=== PATIENT | male | born 1975 | race Caucasian/White ===

== ENCOUNTER 2017-01-08 05:12 | Emergency (ER) | payer MEDICAID, SELFPAY ==
[~2017-01-08] VITALS: Ht 182.9 cm; Wt 75.0 kg
[~2017-01-08 05:12] MED LIST: ASPI81CH PO; BACIOI TOP; BACITAB PO; BACITRACIN TOP; BACT800T5 PO; CELE20TA PO; CLEO300C2 PO; CLIN150C14 PO; CLIN300C2 PO; FOLI1TAB4 PO; IBUP200C10 PO; KLON0.5T PO; LYRI150C; LYRI200C PO; MORP15TA4; MS C30TA2; NO HOME MEDS; No current meds; OXYC10TA12 PO; OXYC20TA15; PERC5TAB8; ROXI1TAB2 PO; SERT50TA PO; TRAZ50TA11 PO; VIST50CA PO; VITA100T60 PO; ZOLO50TA PO; [UNRECOGNIZED DRUG - CODE] PO
[2017-01-08] MEDS ORDERED: LORazepam 2 MG/ML VIAL (J2060) IV STA ×2 (05:26→05:39)
[2017-01-08 05:42] LABS: BASO # 0.1 K/mm3 (0.0-0.2); BASO % 0.7 % (0.0-1.0); EOS # 0.1 K/mm3 (0.0-0.50); EOS % 1.2 % (0.0-3.0); LARGE UNSTAINED CELL # 0.5 K/mm3 (0.0-0.4); LARGE UNSTAINED CELL % 5.1 % (0.0-4.0); LYMPH # 3.4 K/mm3 (1.5-4.5); LYMPH % 28.5 % (24.0-44.0); MEAN CORPUSCULAR HEMOGLOBIN 32.5 pg (27.0-33.0); MEAN CORPUSCULAR HGB CONC 34.2 g/dl (32.0-36.5); MEAN CORPUSCULAR VOLUME 95.1 fl (80.0-96.0); MONO # 0.8 K/mm3 (0.0-0.8); MONO % 7.5 % (0.0-5.0); NEUTROPHILS # 5.8 K/mm3 (1.8-7.7); PLATELET COUNT, AUTOMATED 400 k/mm3 (150-450); WHITE BLOOD COUNT 10.1 K/mm3 (4.0-10.0)
[2017-01-08 06:11] LABS: ALBUMIN 4.4 GM/DL (3.2-5.2); ALBUMIN/GLOBULIN RATIO 1.29 (1.00-1.93); ALKALINE PHOSPHATASE 65 U/L (45-117); ALT/SGPT 17 U/L (12-78); ANION GAP 12 MEQ/L (8-16); AST/SGOT 9 U/L (15-37); BILIRUBIN,DIRECT 0.2 MG/DL (0.0-0.2); BILIRUBIN,TOTAL 1.4 MG/DL (0.2-1.0); BLOOD UREA NITROGEN 11 MG/DL (7-18); CALCIUM LEVEL 8.9 MG/DL (8.5-10.1); CARBON DIOXIDE LEVEL 26 MEQ/L (21-32); CHLORIDE LEVEL 100 MEQ/L (98-107); CREATININE FOR GFR 1.42 MG/DL (0.70-1.30); FREE T4 1.16 NG/DL (0.76-1.46); GLOMERULAR FILTRATION RATE 57.9 (>60); GLUCOSE, FASTING 121 MG/DL (70-105); POTASSIUM SERUM 3.2 MEQ/L (3.5-5.1); SODIUM LEVEL 138 MEQ/L (136-145); TOTAL PROTEIN 7.8 GM/DL (6.4-8.2)
[2017-01-08] MEDS ORDERED: NS 1,000 ML IV ONE (06:30)
[2017-01-08] MEDS ORDERED: NITROGLYCERIN 2% OINT 1 GM *U/D* PKT TOP ONE (06:45)
[2017-01-08 06:47] VITALS: BP 132/65
--- NOTE | 2017-01-08 07:01 | ED PDOC ---
Post-Departure Follow-Up certified letter sent to patient Pratibha Cummins MD Jan 08, 2017 07:00
[2017-01-08 07:08] LABS: METHADONE URINE NEGATIVE (NEGATIVE)
--- NOTE | 2017-01-08 07:31 | REP ---
Clinical: Chest pain . Comparison: 06/30/2016 . Findings: The mediastinum and cardiac silhouette are stable and within normal limits for portable technique. The lung cisneros are clear without acute consolidation, effusion, or pneumothorax. Skeletal structures are intact. Impression: No acute cardiopulmonary process appreciated. Signed by Harjinder Payne MD 01/08/2017 07:23 A
[2017-01-08 10:50] VITALS: BP 128/61
--- NOTE | 2017-01-09 07:21 | ECGEPIP ---
Stationary ECG Study [facility] - ED Test Date: 2017-01-08 Pat Name: HO SMALL Department: Room: - Gender: M Roving Department Supervisor: FarrellB: 1975 Requested By: IRMA Silva Order Number: [id number] Reading MD: Pratibha Cummins Measurements Intervals [place] Rate: 120 P: 62 [place]: 147 QRS: 87 QRSD: 106 T: 67 QT: 319 QTc: 451 Interpretive Statements SINUS TACHYCARDIA ABNORMAL RHYTHM ECG NSTTW ABNORMALITY VS ARTIFACT BASELINE ARTIFACT LIMITS INTERPRETATION Electronically Signed On 01-09-2017 7:21:38 EDT by Pratibha Cummins
--- NOTE | 2017-01-09 07:26 | ECGEPIP ---
Stationary ECG Study [facility] - ED Test Date: 2017-01-08 Pat Name: HO SMALL Department: Room: - Gender: M Night Order Selector: PEYTON : 1975 Requested By: IRMA Silva Order Number: [id number] Reading MD: Pratibha Cummins Measurements Intervals [place] Rate: 69 P: 72 DE: 144 QRS: 89 QRSD: 109 T: 76 QT: 374 QTc: 402 Interpretive Statements SINUS RHYTHM Electronically Signed On 01-09-2017 7:26:29 EDT by Pratibha Cummins
[2017-05-07] MEDS ORDERED: IBUP-1022 PO (10:18)
[2017-05-07] MEDS ORDERED: CLEO300C2 PO (12:53)
== END 2017-01-08 12:31 | disposition home or self-care (01) ==
LOC: EDBD 05:12 → M ED 05:12
DX: R07.9 Chest pain, unspecified (principal); F15.10 Other stimulant abuse, uncomplicated; I25.9 Chronic ischemic heart disease, unspecified; Z95.5 Presence of coronary angioplasty implant and graft; Z88.5 Allergy status to narcotic agent
CPT/HCPCS: 51701; 71010; 80048; 80076; 80307; 82550; 82553; 83690; 83880; 84439; 84443; 85025; 93005; 93041; 94760; 96374; 99285; G0480; J2060

== ENCOUNTER 2018-05-22 13:44 | Observation (INO) | payer MEDICAID, SELFPAY ==
[2018-05-22] MEDS: NS 1,000 ML IV ×2 (14:11→19:31)
[2018-05-22] MEDS: ONDANSETRON 4MG/2ML VIAL (J2405) IV ×2 (14:11→21:23)
[2018-05-22] MEDS: LORazepam 2 MG/ML VIAL (J2060) IV ×4 (14:11→21:56)
[2018-05-22 14:34] LABS: BASO # 0.1 10^3/uL (0.0-0.2); BASO % 0.4 % (0.0-1.0); EOS # 0.1 10^3/uL (0.0-0.50); EOS % 0.7 % (0.0-3.0); HEMATOCRIT 41.7 % (42.0-52.0); HEMOGLOBIN 14.1 g/dl (13.5-17.5); IMMATURE GRANULOCYTE % 0.5 % (0-3.0); LYMPH # 1.9 10^3/uL (1.5-4.5); MEAN CORPUSCULAR HEMOGLOBIN 31.3 pg (27.0-33.0); MEAN CORPUSCULAR HGB CONC 33.8 g/dl (32.0-36.5); MEAN CORPUSCULAR VOLUME 92.5 fl (80.0-96.0); MONO # 1.1 10^3/uL (0.0-0.8); MONO % 8.1 % (0.0-5.0); NEUTROPHILS # 10.4 10^3/uL (1.8-7.7); NEUTROPHILS % 76.3 % (36.0-66.0); PLATELET COUNT, AUTOMATED 433 10^3/uL (150-450); RED BLOOD COUNT 4.51 10^6/uL (4.30-6.10); RED CELL DISTRIBUTION WIDTH 12.6 % (11.5-14.5); WHITE BLOOD COUNT 13.6 10^3/uL (4.0-10.0)
[2018-05-22 15:13] LABS: ALBUMIN 4.3 GM/DL (3.2-5.2); ALBUMIN/GLOBULIN RATIO 1.39 (1.00-1.93); ALKALINE PHOSPHATASE 63 U/L (45-117); ALT/SGPT 21 U/L (12-78); ANION GAP 11 MEQ/L (8-16); AST/SGOT 21 U/L (7-37); BILIRUBIN,DIRECT 0.2 MG/DL (0.0-0.2); BLOOD UREA NITROGEN 7 MG/DL (7-18); CALCIUM LEVEL 9.3 MG/DL (8.5-10.1); CARBON DIOXIDE LEVEL 25 MEQ/L (21-32); CHLORIDE LEVEL 103 MEQ/L (98-107); CPK CREATINE PHOSPHOKINASE 361 U/L (39-308); CREATININE FOR GFR 1.34 MG/DL (0.70-1.30); ETHYL ALCOHOL (ETHANOL) 0.004 % (0.000-0.010); GLOMERULAR FILTRATION RATE > 60.0 (>60); GLUCOSE, FASTING 85 MG/DL (70-100); SALICYLATE LEVEL 1.7 MG/DL (5.0-30.0); SODIUM LEVEL 139 MEQ/L (136-145); TOTAL PROTEIN 7.4 GM/DL (6.4-8.2)
[2018-05-22 15:14] LABS: ACETAMINOPHEN LEVEL < 2.0 UG/ML (10.0-30.0)
[2018-05-22 16:32] LABS: AMPHETAMINES LEVEL URINE POSITIVE (NEGATIVE); BARBITURATES URINE NEGATIVE (NEGATIVE); BENZODIAZEPINES URINE NEGATIVE (NEGATIVE); CANNABINOIDS URINE NEGATIVE (NEGATIVE); COCAINE METABOLITE URINE NEGATIVE (NEGATIVE); METHADONE URINE NEGATIVE (NEGATIVE); OPIATES URINE NEGATIVE (NEGATIVE); PHENCYCLIDINE URINE NEGATIVE (NEGATIVE)
[2018-05-22 17:59] LABS: CPK CREATINE PHOSPHOKINASE 332 U/L (39-308)
[2018-05-22] MEDS: ACETAMINOPHEN TAB 650MG DOSE (2X325MG) PO (21:22)
[2018-05-23 08:04] LABS: HEMATOCRIT 39.9 % (42.0-52.0); HEMOGLOBIN 13.5 g/dl (13.5-17.5); MEAN CORPUSCULAR HEMOGLOBIN 31.5 pg (27.0-33.0); MEAN CORPUSCULAR HGB CONC 33.8 g/dl (32.0-36.5); RED BLOOD COUNT 4.29 10^6/uL (4.30-6.10); RED CELL DISTRIBUTION WIDTH 12.9 % (11.5-14.5); WHITE BLOOD COUNT 8.1 10^3/uL (4.0-10.0)
[2018-05-23 08:11] LABS: PLATELET COUNT, AUTOMATED 321 10^3/uL (150-450)
[2018-05-23 08:17] LABS: ANION GAP 6 MEQ/L (8-16); BLOOD UREA NITROGEN 7 MG/DL (7-18); CALCIUM LEVEL 8.1 MG/DL (8.5-10.1); CARBON DIOXIDE LEVEL 28 MEQ/L (21-32); CHLORIDE LEVEL 108 MEQ/L (98-107); CREATININE FOR GFR 0.97 MG/DL (0.70-1.30); GLOMERULAR FILTRATION RATE > 60.0 (>60); GLUCOSE, FASTING 96 MG/DL (70-100); POTASSIUM SERUM 3.4 MEQ/L (3.5-5.1); SODIUM LEVEL 142 MEQ/L (136-145)
[2018-05-23] MEDS: PANTOPRAZOLE 40MG INJ (PROTONIX) (C9113) IV ×2 (09:00→22:02)
[2018-05-23] MEDS ORDERED: PANTOPRAZOLE 40MG TAB (PROTONIX) PO (09:00)
[2018-05-23] MEDS ORDERED: POTASSIUM CHLORIDE 10 MEQ SR TABLET PO (10:00)
[2018-05-23] MEDS: ONDANSETRON 4MG/2ML VIAL (J2405) IV ×2 (10:53→17:21)
[2018-05-23] MEDS: SUCRALFATE SUSP 1GM/10ML UD PO ×3 (12:18→22:02)
[2018-05-23] MEDS: GI COCKTAIL 50ML BTL(HYOSCYAMINE/MAALOX/LIDOCAINE VISCOUS)(1:3:1) PO ×2 (12:19→22:02)
[2018-05-23 12:50] LABS: AMYLASE 26 U/L (25-115); LIPASE 71 U/L (73-393)
[2018-05-23] MEDS: ACETAMINOPHEN TAB 650MG DOSE (2X325MG) PO ×2 (13:50→22:12)
[2018-05-24] MEDS: ACETAMINOPHEN TAB 650MG DOSE (2X325MG) PO (04:10)
[2018-05-24] MEDS: SUCRALFATE SUSP 1GM/10ML UD PO ×4 (09:30→21:07)
[2018-05-24] MEDS: PANTOPRAZOLE 40MG INJ (PROTONIX) (C9113) IV (09:30)
[2018-05-24] MEDS: ONDANSETRON 4MG/2ML VIAL (J2405) IV (09:30)
[2018-05-24] MEDS: ONDANSETRON 4 MG ORAL DISINTEGRATING TAB (Q0162 PER 1MG) SL (13:39)
[2018-05-24] MEDS ORDERED: SUCRALFATE SUSP 1GM/10ML UD PO (17:15)
[2018-05-24] MEDS: PANTOPRAZOLE 40MG TAB (PROTONIX) PO (21:07)
[2018-05-25] MEDS: SUCRALFATE SUSP 1GM/10ML UD PO ×3 (09:47→17:14)
[2018-05-25] MEDS: PANTOPRAZOLE 40MG TAB (PROTONIX) PO (10:00)
[2018-05-25] MEDS: ACETAMINOPHEN TAB 650MG DOSE (2X325MG) PO (12:41)
== END 2018-05-25 18:30 ==
LOC: M MSPAV 05-23 15:31 → M ED 13:44 → M ED INP 19:31 → M ICU 21:30
DX: T14.91XA Suicide attempt, initial encounter (principal); T43.622A Poisoning by amphetamines, intentional self-harm, initial encounter; K29.60 Other gastritis without bleeding; F19.20 Other psychoactive substance dependence, uncomplicated; I25.10 Atherosclerotic heart disease of native coronary artery without angina pectoris; Z98.61 Coronary angioplasty status; I25.2 Old myocardial infarction; I10 Essential (primary) hypertension; Z79.899 Other long term (current) drug therapy; Y92.9 Unspecified place or not applicable
CPT/HCPCS: C9113

== ENCOUNTER 2018-05-25 18:30 | Inpatient (IN) | payer MEDICAID, SELFPAY ==
[2018-05-25] MEDS ORDERED: MAALOX 30 ML SUSP *UDC PO (19:15)
[2018-05-25] MEDS ORDERED: MOM 30ML SUSPENSION UDC PO (19:15)
[2018-05-25] MEDS: hydrOXYzine 50 MG TAB PO (21:41)
[2018-05-25] MEDS: MIRTAZAPINE 15 MG TAB PO (21:41)
[2018-05-26] MEDS: NICOTINE 14 MG/24 HR TRANSDERMAL TD (09:00)
[2018-05-26] MEDS: SERTRALINE HCL 50 MG TAB PO (09:50)
[2018-05-26] MEDS: hydrOXYzine 50 MG TAB PO ×2 (09:51→21:10)
[2018-05-26] MEDS: SUCRALFATE SUSP 1GM/10ML UD PO ×3 (11:34→21:10)
[2018-05-26] MEDS: PANTOPRAZOLE 40MG TAB (PROTONIX) PO (11:34)
[2018-05-26] MEDS: IBUPROFEN 400 MG TAB PO (17:07)
[2018-05-26] MEDS: MIRTAZAPINE 15 MG TAB PO (21:10)
[2018-05-27] MEDS: SUCRALFATE SUSP 1GM/10ML UD PO ×4 (07:11→21:12)
[2018-05-27] MEDS: SERTRALINE HCL 50 MG TAB PO (08:14)
[2018-05-27] MEDS: PANTOPRAZOLE 40MG TAB (PROTONIX) PO (08:14)
[2018-05-27] MEDS: NICOTINE 14 MG/24 HR TRANSDERMAL TD (08:15)
[2018-05-27] MEDS: hydrOXYzine 50 MG TAB PO (12:09)
[2018-05-27] MEDS: GABAPENTIN 300 MG CAP PO ×2 (15:44→21:12)
[2018-05-27] MEDS: hydrOXYzine 25 MG TAB PO (15:44)
[2018-05-27] MEDS: MIRTAZAPINE 15 MG TAB PO (21:12)
[2018-05-28] MEDS: SUCRALFATE SUSP 1GM/10ML UD PO ×4 (07:38→21:22)
[2018-05-28] MEDS: GABAPENTIN 300 MG CAP PO ×3 (09:00→21:22)
[2018-05-28] MEDS: PANTOPRAZOLE 40MG TAB (PROTONIX) PO (09:00)
[2018-05-28] MEDS: SERTRALINE HCL 50 MG TAB PO (09:00)
[2018-05-28] MEDS: hydrOXYzine 25 MG TAB PO ×2 (09:00→16:33)
[2018-05-28] MEDS: NICOTINE 14 MG/24 HR TRANSDERMAL TD (09:00)
[2018-05-28] MEDS: MIRTAZAPINE 15 MG TAB PO (21:23)
[2018-05-29] MEDS: SUCRALFATE SUSP 1GM/10ML UD PO ×3 (06:49→17:14)
[2018-05-29] MEDS: GABAPENTIN 300 MG CAP PO ×3 (08:27→21:18)
[2018-05-29] MEDS: SERTRALINE HCL 50 MG TAB PO (08:27)
[2018-05-29] MEDS: PANTOPRAZOLE 40MG TAB (PROTONIX) PO (08:27)
[2018-05-29] MEDS: NICOTINE 14 MG/24 HR TRANSDERMAL TD (08:27)
[2018-05-29] MEDS: hydrOXYzine 25 MG TAB PO ×2 (13:35→21:18)
[2018-05-29] MEDS: PROPRANOLOL 10 MG TAB PO (15:21)
[2018-05-29] MEDS: SUCRALFATE 1 GM TAB PO (21:18)
[2018-05-29] MEDS: MIRTAZAPINE 15 MG TAB PO (21:18)
[2018-05-30] MEDS: SUCRALFATE 1 GM TAB PO ×4 (07:08→21:00)
[2018-05-30] MEDS: NICOTINE 14 MG/24 HR TRANSDERMAL TD (10:05)
[2018-05-30] MEDS: GABAPENTIN 300 MG CAP PO ×4 (10:07→21:00)
[2018-05-30] MEDS: PANTOPRAZOLE 40MG TAB (PROTONIX) PO (10:07)
[2018-05-30] MEDS: SERTRALINE HCL 50 MG TAB PO (10:07)
[2018-05-30] MEDS: hydrOXYzine 25 MG TAB PO ×2 (10:07→15:31)
[2018-05-30] MEDS: IBUPROFEN 400 MG TAB PO (15:31)
[2018-05-30] MEDS: MIRTAZAPINE 15 MG TAB PO (21:00)
[2018-05-31] MEDS: SUCRALFATE 1 GM TAB PO ×4 (06:34→21:45)
[2018-05-31] MEDS: GABAPENTIN 300 MG CAP PO ×4 (08:41→21:45)
[2018-05-31] MEDS: PANTOPRAZOLE 40MG TAB (PROTONIX) PO (08:41)
[2018-05-31] MEDS: NICOTINE 14 MG/24 HR TRANSDERMAL TD (08:41)
[2018-05-31] MEDS: SERTRALINE HCL 50 MG TAB PO (08:41)
[2018-05-31] MEDS: hydrOXYzine 25 MG TAB PO (14:30)
[2018-05-31] MEDS: MIRTAZAPINE 15 MG TAB PO (21:45)
[2018-06-01] MEDS: SUCRALFATE 1 GM TAB PO ×2 (06:38→11:30)
[2018-06-01] MEDS: NICOTINE 14 MG/24 HR TRANSDERMAL TD (09:00)
[2018-06-01] MEDS: SERTRALINE HCL 50 MG TAB PO (09:46)
[2018-06-01] MEDS: GABAPENTIN 300 MG CAP PO (09:46)
[2018-06-01] MEDS: PANTOPRAZOLE 40MG TAB (PROTONIX) PO (09:46)
[2018-06-01] MEDS: hydrOXYzine 25 MG TAB PO (09:47)
[2018-06-01] MEDS ORDERED: hydrOXYzine 50 MG TAB PO (11:15)
== END 2018-06-01 12:30 | disposition home or self-care (01) | DRG 751 ==
LOC: M PSY 18:30
DX: F33.2 Major depressive disorder, recurrent severe without psychotic features (principal); R45.851 Suicidal ideations; F19.94 Other psychoactive substance use, unspecified with psychoactive substance-induced mood disorder; F15.90 Other stimulant use, unspecified, uncomplicated; Z79.899 Other long term (current) drug therapy; Z88.8 Allergy status to other drugs, medicaments and biological substances; I25.10 Atherosclerotic heart disease of native coronary artery without angina pectoris; F41.9 Anxiety disorder, unspecified; F17.200 Nicotine dependence, unspecified, uncomplicated

== ENCOUNTER 2018-06-03 16:38 | Emergency (ER) | payer MEDICAID ==
[2018-06-03] MEDS: LORazepam 2 MG/ML VIAL (J2060) IV ×3 (17:27→18:38)
[2018-06-03 17:36] LABS: BASO # 0.1 10^3/uL (0.0-0.2); BASO % 0.6 % (0.0-1.0); EOS # 0.2 10^3/uL (0.0-0.50); EOS % 1.2 % (0.0-3.0); HEMOGLOBIN 15.1 g/dl (13.5-17.5); IMMATURE GRANULOCYTE % 0.4 % (0-3.0); LYMPH % 12.3 % (24.0-44.0); MEAN CORPUSCULAR HEMOGLOBIN 30.4 pg (27.0-33.0); MEAN CORPUSCULAR HGB CONC 33.6 g/dl (32.0-36.5); MEAN CORPUSCULAR VOLUME 90.5 fl (80.0-96.0); MONO # 1.2 10^3/uL (0.0-0.8); MONO % 7.4 % (0.0-5.0); NEUTROPHILS # 12.7 10^3/uL (1.8-7.7); NEUTROPHILS % 78.1 % (36.0-66.0); PLATELET COUNT, AUTOMATED 403 10^3/uL (150-450); RED BLOOD COUNT 4.97 10^6/uL (4.30-6.10); RED CELL DISTRIBUTION WIDTH 12.8 % (11.5-14.5); WHITE BLOOD COUNT 16.3 10^3/uL (4.0-10.0)
[2018-06-03 18:15] LABS: ACETAMINOPHEN LEVEL < 2.0 UG/ML (10.0-30.0); ALBUMIN 4.3 GM/DL (3.2-5.2); ALBUMIN/GLOBULIN RATIO 1.16 (1.00-1.93); ALKALINE PHOSPHATASE 89 U/L (45-117); ALT/SGPT 248 U/L (12-78); ANION GAP 13 MEQ/L (8-16); AST/SGOT 89 U/L (7-37); BILIRUBIN,DIRECT 0.2 MG/DL (0.0-0.2); BILIRUBIN,TOTAL 1.8 MG/DL (0.2-1.0); BLOOD UREA NITROGEN 18 MG/DL (7-18); CALCIUM LEVEL 9.4 MG/DL (8.5-10.1); CARBON DIOXIDE LEVEL 23 MEQ/L (21-32); CHLORIDE LEVEL 103 MEQ/L (98-107); CPK CREATINE PHOSPHOKINASE 507 U/L (39-308); CREATININE FOR GFR 1.33 MG/DL (0.70-1.30); ETHYL ALCOHOL (ETHANOL) < 0.003 % (0.000-0.010); GLOMERULAR FILTRATION RATE > 60.0 (>60); GLUCOSE, FASTING 89 MG/DL (70-100); POTASSIUM SERUM 4.9 MEQ/L (3.5-5.1); SALICYLATE LEVEL < 1.7 MG/DL (5.0-30.0); SODIUM LEVEL 139 MEQ/L (136-145)
[2018-06-03 19:12] LABS: ABG BASE EXCESS -0.2 (-2.0-2.0); ABG HCO3 23.4 MEQ/L (22.0-26.0); ABG O2 SATURATION 96.7 % (95.0-99.0); ABG PARTIAL PRESSURE CO2 35.1 mmHg (35.0-45.0); ABG PARTIAL PRESSURE O2 85.2 mmHg (75.0-100.0); ABG STANDARD HCO3 24.3 MEQ/L (22.0-26.0); ABG TOTAL CO2 24.4 MEQ/L (22.0-29.0); ABG pH (ARTERIAL) 7.441 UNITS (7.350-7.450); AMPHETAMINES LEVEL URINE POSITIVE (NEGATIVE); BARBITURATES URINE NEGATIVE (NEGATIVE); BENZODIAZEPINES URINE NEGATIVE (NEGATIVE); CANNABINOIDS URINE NEGATIVE (NEGATIVE); COCAINE METABOLITE URINE NEGATIVE (NEGATIVE); METHADONE URINE NEGATIVE (NEGATIVE); OPIATES URINE NEGATIVE (NEGATIVE); PHENCYCLIDINE URINE NEGATIVE (NEGATIVE)
[2018-06-03] MEDS: chlorproMAZINE INJ 50MG/2ML AMP (J3230) IM (19:56)
[2018-06-03] MEDS: diphenhydrAMINE INJ 50MG/ML VIAL (J1200) IM (22:22)
[2018-06-03] MEDS: HALOPERIDOL 5 MG/ML VIAL (J1630) IM (22:22)
== END 2018-06-04 13:31 | disposition home or self-care (01) ==
LOC: M ED 06-04 13:31
DX: F15.10 Other stimulant abuse, uncomplicated (principal); R00.0 Tachycardia, unspecified; Z91.5 Personal history of self-harm; M54.9 Dorsalgia, unspecified; F17.200 Nicotine dependence, unspecified, uncomplicated; Z88.5 Allergy status to narcotic agent; Z95.5 Presence of coronary angioplasty implant and graft; Z79.899 Other long term (current) drug therapy
CPT/HCPCS: J1200

== ENCOUNTER 2018-06-18 21:24 | Emergency (ER) | payer MEDICAID | END 2018-06-18 22:21 | disposition home or self-care (01) | LOC: M ED 21:24 | DX: L73.1 Pseudofolliculitis barbae (principal); I51.9 Heart disease, unspecified; Z72.0 Tobacco use; Z88.5 Allergy status to narcotic agent | CPT/HCPCS: 99282 ==

== ENCOUNTER 2019-11-04 20:27 | Inpatient (IN) | payer MEDICAID ==
[~2019-11-04] VITALS: Ht 180.3 cm; Wt 80.9 kg
[~2019-11-04 20:27] MED LIST changes: -ASPI81CH PO; +ASPI81CH49 PO; +FOLI1TAB11 PO; -FOLI1TAB4 PO; +HYDR1TAB33 PO; +Hyoscyamine/Maalox/Lidoca Visc PO; +IBUP-1022 PO; -IBUP200C10 PO; +IBUP200C25 PO; +MIRT15TA3 PO; +NAPR-837 PO; +NICO14PA TD; +ONDA4TAB6 SL; +PANT40TA3 PO; +PROP10TA55 PO; +SERT-141 PO; -SERT50TA PO; +SUCR1ORA2 PO; +TRAZ-252 PO; -TRAZ50TA11 PO
[2019-11-04] MEDS ORDERED: LORazepam 2 MG TAB PO STA (20:58)
[2019-11-04 21:39] LABS: HEMATOCRIT 45.3 % (42.0-52.0); HEMOGLOBIN 15.4 g/dl (13.5-17.5); MEAN CORPUSCULAR HEMOGLOBIN 30.1 pg (27.0-33.0); MEAN CORPUSCULAR VOLUME 88.5 fl (80.0-96.0); PLATELET COUNT, AUTOMATED 428 10^3/uL (150-450); RED BLOOD COUNT 5.12 10^6/uL (4.30-6.10); WHITE BLOOD COUNT 18.9 10^3/uL (4.0-10.0)
[2019-11-04 22:13] LABS: ACETAMINOPHEN LEVEL < 2.0 UG/ML (10.0-30.0); ALBUMIN 4.3 GM/DL (3.2-5.2); ALT/SGPT 19 U/L (12-78); BILIRUBIN,DIRECT 0.4 MG/DL (0.0-0.2); BILIRUBIN,TOTAL 2.1 MG/DL (0.2-1.0); BLOOD UREA NITROGEN 15 MG/DL (7-18); CARBON DIOXIDE LEVEL 27 MEQ/L (21-32); CHLORIDE LEVEL 104 MEQ/L (98-107); CREATININE FOR GFR 1.42 MG/DL (0.70-1.30); ETHYL ALCOHOL (ETHANOL) < 0.003 % (0.000-0.010); GLOMERULAR FILTRATION RATE 57.1 (>60); GLUCOSE, FASTING 85 MG/DL (70-100); POTASSIUM SERUM 3.9 MEQ/L (3.5-5.1); SALICYLATE LEVEL < 1.7 MG/DL (5.0-30.0); SODIUM LEVEL 139 MEQ/L (136-145); TOTAL PROTEIN 7.4 GM/DL (6.4-8.2)
[2019-11-04] MEDS ORDERED: LORazepam 1 MG TAB PO STA (22:25)
[2019-11-04 22:54] LABS: AMPHETAMINES LEVEL URINE POSITIVE (NEGATIVE); BARBITURATES URINE NEGATIVE (NEGATIVE); BENZODIAZEPINES URINE NEGATIVE (NEGATIVE); CANNABINOIDS URINE NEGATIVE (NEGATIVE); COCAINE METABOLITE URINE NEGATIVE (NEGATIVE); METHADONE URINE NEGATIVE (NEGATIVE); OPIATES URINE NEGATIVE (NEGATIVE); PHENCYCLIDINE URINE NEGATIVE (NEGATIVE)
[2019-11-04] MEDS ORDERED: MAALOX 30 ML SUSP *UDC PO PRN (23:30)
[2019-11-04] MEDS ORDERED: MOM 30ML SUSPENSION UDC PO PRN (23:30)
[2019-11-04] MEDS ORDERED: ACETAMINOPHEN TAB 650MG DOSE (2X325MG) PO PRN (23:30)
[2019-11-05 01:12] VITALS: BP 133/82
[2019-11-05 14:09] LABS: HEMATOCRIT 47.2 % (42.0-52.0); HEMOGLOBIN 15.9 g/dl (13.5-17.5); MEAN CORPUSCULAR HEMOGLOBIN 30.4 pg (27.0-33.0); MEAN CORPUSCULAR HGB CONC 33.7 g/dl (32.0-36.5); MEAN CORPUSCULAR VOLUME 90.2 fl (80.0-96.0); PLATELET COUNT, AUTOMATED 396 10^3/uL (150-450); RED BLOOD COUNT 5.23 10^6/uL (4.30-6.10); WHITE BLOOD COUNT 8.7 10^3/uL (4.0-10.0)
[2019-11-05 14:27] LABS: ERYTHROCYTE SEDIMENTATION RATE 5 mm/hr (0-15)
[2019-11-05 14:34] LABS: ALBUMIN 3.8 GM/DL (3.2-5.2); ALT/SGPT 19 U/L (12-78); BLOOD UREA NITROGEN 21 MG/DL (7-18); C REACTIVE PROTEIN QUANTITATIV 5.24 MG/DL (0.00-0.30); CALCIUM LEVEL 9.2 MG/DL (8.5-10.1); CARBON DIOXIDE LEVEL 27 MEQ/L (21-32); CHLORIDE LEVEL 104 MEQ/L (98-107); CHOLESTEROL LEVEL 194 MG/DL (<200); CHOLESTEROL RISK RATIO 4.511 (<5); CREATININE FOR GFR 1.24 MG/DL (0.70-1.30); GLOMERULAR FILTRATION RATE > 60.0 (>60); GLUCOSE, FASTING 117 MG/DL (70-100); HDL CHOLESTEROL 43 MG/DL (>40); LDL CHOLESTEROL 141 MG/DL (<100); NON-HDL-C 151 MG/DL; POTASSIUM SERUM 3.8 MEQ/L (3.5-5.1); SODIUM LEVEL 139 MEQ/L (136-145); TRIGLYCERIDES LEVEL 52 MG/DL (<150)
[2019-11-05 16:35] VITALS: BP 111/57
[2019-11-05] MEDS: ARIPiprazole 2 MG TAB PO SCH (21:27)
[2019-11-05] MEDS: traZODone 50 MG TAB PO PRN (21:27)
[2019-11-06 06:24] VITALS: BP 132/66
--- NOTE | 2019-11-06 09:10 | HPE ---
DATE OF ADMISSION: 11/04/2019 DATE OF SERVICE: 11/05/2019 CHIEF COMPLAINT: Patient is admitted to inpatient mental health unit. No medical complaints at this time. HISTORY OF PRESENTING ILLNESS: This is a 44-year-old male with history o polysubstance abuse, anxiety, history of intentional drug overdose,suicide attempt and suicide ideation, coronary artery disease (CAD) with historyof stent,and lumbar laminectomy in 2007,admitted to inpatient mental health unit.Currently denies any fever, chills, cough, shortness of breath, nausea, vomiting,diarrhea, dysuria, urgency, frequency, abdominal pain, weight gain, weight loss.Patient denies any chest pain, pressure tightness, shortness of breath,palpitations, lightheadedness, dizziness. Denies any flank pain, bright redblood per rectum, melena, black tarry stools. Patient is requesting for his home medications to be restarted. Otherwise, denies any changes in vision, joint pains, muscle aches, weight loss, unusual rash. PAST MEDICAL HISTORY: 1. CAD, stent. 2. Polysubstance abuse. 3. Suicide attempt. 4. Intentional drug overdose. 5. Suicidal ideation. 6. Anxiety. 7. Depression. PAST SURGICAL HISTORY: 1. Lumbar laminectomy 2007. 2. Appendectomy. 3. Coronary artery stents. SOCIAL HISTORY: Lives in [place]. . Three children. Smokes a half a pack per day. Not ready to quit. Refused tobacco cessation counseling today and refused nicotine patch or nicotine gum. History of methamphetamine, cocaine use. 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 FAMILY HISTORY: Mother and father alive with coronary artery disease. One brother with CAD. One sister who is healthy. All children are alive and well. REVIEW OF SYSTEMS: Per history of presenting illness (HPI). 12-point system otherwise negative. PHYSICAL EXAMINATION: Vital signs: Temperature 98.4, pulse 100, respiratory 16, blood pressure 133/82, 98% on room air. Generally: Awake, alert, oriented times three. Answering questions appropriately. No jugular venous distention (JVD). No thyromegaly. No cervical lymphadenopathy. Patient has no icterus or jaundice. Lungs are clear to auscultation. No wheezing, rales, or rhonchi. Heart: S1, S2, sinus tachycardia. No murmurs noted. His abdomen is soft, nontender, and nondistended. Positive bowel sounds. Extremities: No cyanosis, clubbing, or any pitting edema. LABORATORY DATA: White count 18.9, hemoglobin 15, hematocrit 45, platelet count 428. Sodium 139, potassium 3.9, chloride 104, bicarbonate 27, BUN 15, creatinine 1.42, glucose of 85, total bilirubin 2.1, direct bilirubin 0.4, AST 22, ALT 19, alkaline phosphatase 71, albumin 4.3, TSH 2.81. Patient's previous creatinine was 1.33 ASSESSMENT AND PLAN: 44-year-old male with history of chronic kidney disease, baseline creatinine of 1.3 to 1.5 in 2014, coronary artery disease, coronary stent, polysubstance abuse, anxiety, depression, admitted for depression. CURRENT ISSUES ARE FOLLOWS: 1. Chronic kidney disease stage III. At baseline creatinine. On review of his blood work over the past 4 years, patient has had chronic kidney disease stage III. Avoid nephrotoxins. Renally dose all medications. At this time, patient is not complaining of any acute urinary symptoms. Denies any history of prostate issues as well as hydronephrosis. 2. History of coronary artery disease with coronary stenting. Patient is not on any aspirin or any beta-blockade. He currently has episodes of low blood pressure with systolic pressure dropping down to 97/54. Currently on no beta-blockade due to severe depression. Will need to obtain patient's records from his medical physician. Check lipid panel. 3. History of gastritis. Was on Carafate and proton pump inhibitor (PPI). Currently not complaining of any issues. Obtain records from primary care physician. 4. Depression, suicidal ideation. Defer to psychiatrist for management. [facility]ALTHShira
[2019-11-06] MEDS: OLANZapine ORAL DISINTEGRATING TAB 5MG PO PRN (15:54)
[2019-11-06 16:22] VITALS: BP 124/67
[2019-11-06] MEDS: traZODone 50 MG TAB PO PRN (21:53)
[2019-11-06] MEDS: ARIPiprazole 2 MG TAB PO SCH (21:53)
[2019-11-07 06:31] VITALS: BP 129/60
--- NOTE | 2019-11-07 11:32 | MHHPE ---
DATE OF ADMISSION: 11/04/2019 This is a telemedicine inpatient evaluation; we are currently doing this because of the virus pandemic. CHIEF COMPLAINT: Feels suicidal. SUBJECTIVE: He is 44 years old, he is , has at least three children, says he stays on his own. He is being seen via video, in the presence of staff. He was admitted to the inpatient psychiatry unit after he had been seen on an overpass, was planning to jump in order to kill himself, and the police brought him to the hospital. He is not clear how the police came to be there, says they may have been just passing through or someone may have called them. He says has been feeling irritable and depressed, says this did not just come about, but that this has been the case for a long time, possibly years, though is somewhat vague on this. He has had previous inpatient hospitalizations, has attempted taking his life in the past, was last admitted at [facility] in May 2018, was seen by Dr. Marcus. Please refer to her summary for details related to the circumstances of the admission at that time. He was here from May 25 to June 01, 2018, diagnosed with major depressive disorder, recurrent, severe, as well as amphetamine use disorder. He has had previous hospitalizations, has received a diagnosis of substance-induced depressive disorder. Has a history of misusing methamphetamines. Says is not too concerned about aspects of addiction, as he uses methamphetamine only occasionally, once every few weeks or so, says that is for a brief while, in order to get rid of emotional pain. Says in the past, used to use it "to get high" (these are his words). Says [facility], around April, and that he was in there for quite a while, he is on parole at present, sees Luzma Florian, says he has been told he is doing well on that, and he should go off parole in about a month. Says regularly feels like killing himself, and that he wishes that his daughter, who is 18, would understand and says is worried that she does not, whereas his two sons, who are in their early 20s, he suggests, do tend to understand why he wants to kill himself, he feels they would overcome the pain as well. Says he has a sister,, who he is close with, and that she is not sure if she understands why he wants to . At times, suggests that he is not sure whether he wants to feel unless being better would be sustained. Says has generally not been interested in taking medicines, as he is concerned he may be addicted to them, does not want new additions. Has not been in any outpatient care consistently, including in recent times. Says was seen once every 3 months or so when he was in [facility], and after release, attended [facility] rehab, completed it, this was more recent, but he is vague on time frame. Says when there, he was given Vyvanse, but he is not quite sure why. He says he used Ambien in the past, suggests it helped with sleep. Says appetite is erratic, feels depressed, and irritable. Says there are times when he is irritable and that he does not sleep, sometimes for nights on end. Has suicidal thoughts. No plans when he is in hospital. Notes that he has had a concussion, he says he does not know the details, and that his sister would be aware, suggests it was quite awhile ago. Denies any periods of an elated mood, coupled with lack of sleep, excessive energy, goal directed activities. Does not think there are any major new stressors, but possibly is a bit guarded on that. Says there are times when he sees shadows or images, which are vague, sometimes in the central vision, at other times peripheral vision, says when he tends to turn towards the peripheral shadows, they tend to disappear. Occasionally hears sounds, which he cannot account for, it is not consistent. PAST PSYCHIATRIC HISTORY: Please refer to previous summaries, has had previous hospitalizations, including here last year and a few years ago, 2013, as well, when seen in consultation by Dr. Victoria, whose evaluation is reviewed from that time. SUBSTANCE ABUSE HISTORY: Long history of substance abuse, in the last few years, says has used meth, has tended to inject it. He says he did not use any drugs until his late 30s, and that the trigger was his divorce. He acknowledges it was quite painful. Says he gets along with ex- now. Has had inpatient substance abuse treatment as well. FAMILY PSYCHIATRIC HISTORY: I am unaware of at present. SOCIAL HISTORY: Please refer to previous summaries for details. Says he lives on his own at present. Indicates is in touch with his children. He says he wishes his 18-year-old daughter would understand why he wants to kill himself. [facility], is [facility], sees Luzma Florian, [employer] intelligence officer chief, says is in contact with her about once a month or so, and that he is supposed to be off parole in about a month's time. MENTAL STATUS EXAM: He is neat, cooperative, though at times somewhat guarded, fair eye contact, is fidgety to some extent, and appears mildly anxious as well, mild irritability, no psychomotor retardation. He is coherent. Affect is restricted in range. Has suicidal thoughts, denies any firm plans while in the hospital. Denies any homicidal ideas or intent. Denies any auditory or visual hallucinations. No delusional ideations elicited. He is alert, oriented to place and person but not fully to time, initially thought it was the middle of September, then indicated the 04 of November. Spelled the word house forward but declined to do so backwards, had no trouble reciting three digits forward, but had trouble reciting them backwards. Intellect average. No fluctuation of consciousness. Judgment and insight remain poor. VITAL SIGNS: Blood pressure 111/57, pulse 100, temperature 98.2. INVESTIGATIONS: These show urine toxicology positive for amphetamines. Metabolic profile essentially within normal limits except for BUN at 21, C-reactive protein was 5.24. Complete blood count essentially within normal limits, except for RDW at 14.6. ASSESSMENT: Major depressive disorder, possibly recurrent, severe, without psychotic features. Methamphetamine use disorder. [facility] stay. Limited social supports. Considerably depressed, is suicidal, almost jumped off an overpass before he was brought in by police. Says had thought about doing so, and of killing himself for quite a while. Concerned about his children's views on this, and his daughter's view acts as a deterrent against his attempting his life. Being on parole, [facility] being [facility], poor supports, his moods, all are risk factors which have a major impact. PLAN: He is admitted to the inpatient psychiatry unit, placed on relevant precautions. We may need to consider placing him on a 1-on-1 sitter evaluation. We will look at obtaining collateral information. He will receive a medicine consult if indicated. May potentially benefit from using medications. Will place him on Zydis/Zyprexa to help with agitation. We started off on Abilify at 2 mg at night to help with irritability and current distress. The risks, drawbacks, rationale of using the Abilify is discussed, he understands them. It is probably preferable to use a mood stabilizer, empirically, before starting him on an antidepressant. Antidepressant should have a role to play in his current mood as well. The rationale for using medicines is also discussed. Patient will be encouraged to participate in activities on the unit as tolerated. He will be discharged with followup once he is stable. I anticipate a 5-7 day stay. The assessment took 45 minutes.
[2019-11-07] MEDS: OLANZapine ORAL DISINTEGRATING TAB 5MG PO PRN ×2 (12:52→21:12)
--- NOTE | 2019-11-07 15:37 | MHIPN ---
DATE: 11/06/2019 This is a telemedicine video followup. He is seen in the presence of staff. VITAL SIGNS: Blood pressure 124/67, pulse 86, temperature 98.2. CHIEF COMPLAINT: Says feels anxious. SUBJECTIVE: He say he has been feeling anxious. Says the medicine he was given for anxiety is "not working." Says he did sleep well but did not feet rested. Says felt tired and that he has been sleeping most of the day. Says has not been up much, has eaten. Says had suicidal thoughts, but he is not sure if they are as intense as yesterday. MENTAL STATUS EXAMINATION: He is neat. He is cooperative, though a bit guarded. No agitation. No psychomotor retardation. Coherent. Affect is restricted in range. Appears depressed. Has suicidal thoughts. No firm plans at present, though he is vague on this. No evidence of any psychosis. Cognition grossly intact. Judgment and insight remain compromised. ASSESSMENT: Major depressive disorder. PLAN: Continue current care. He has been started on Abilify; may need to look at titrating it up. The subjective experience of anxiety does not go along with his calm demeanor and the fact that he has been in bed most of the day, and we discussed this. We will continue with current observations. Further recommendations will be made depending on the clinical picture. The assessment took 15 minutes.
[2019-11-07 16:15] VITALS: BP 134/68
[2019-11-07] MEDS: traZODone 50 MG TAB PO PRN (21:12)
[2019-11-08 06:25] VITALS: BP 148/74
[2019-11-08] MEDS: OLANZapine ORAL DISINTEGRATING TAB 5MG PO PRN (12:31)
[2019-11-08 15:31] VITALS: BP 134/62
[2019-11-08] MEDS: traZODone 50 MG TAB PO PRN (20:17)
[2019-11-09 06:21] VITALS: BP 115/71
--- NOTE | 2019-11-09 09:43 | MHIPNPDOC ---
[facility] Progress Note Progress Note Inpatient Progress Note Tani Ace MRN: N/A Date of : N/A Date of Service: 11/09/2019 History of Present Illness The patient a 44-year-old man presents after having depression and suicidal thoughts in the context of substance use. Interval History Patient is met with today. He reports he is feeling better and that he has been making progress over the weekend. He has had no major behavioral problems overnight. He reports no other issues and requests to go. He is generally pleasant and engaged. Review Of Systems General: Denies fever or appetite changes Cardiovascular: Denies Chest pain or palpations GI: Denies Nausea, vomiting, or bowel changes Respiratory: Denies shortness of breath or cough Neuro: Denies dizziness, tremors Derm: Denies any rashes or pruritus : Denies any dysuria or urinary problems MSK: Denies any muscle tightness or stiffness HEENT: Denies any vision changes or headaches Psychotherapy None on this visit. Vital Signs Reviewed. Mental Status Examination General: Well dressed with good hygiene Speech: Spontaneous and fluid Thought processes: Linear and logical MSK: Smooth and coordinated gait, no signs of tremors or involuntary orofacial movements Thought content: Future orientated Abstract reasoning, and computation: Intact Description of associations: Intact Description of abnormal or psychotic thoughts: Denies any suicidal or homicidal ideation. Denies any auditory or visual hallucinations. Does not appear to be responding to internal stimuli. Does not appear to be endorsing any bizarre or paranoid ideation. Judgment: fair Insight: fair Orientation: Alert and orientated 3 Cognition: Grossly normal Recent and remote memory: Intact Attention span and concentration: Intact Fund of knowledge: Adequate Mood: "okay" Affect: Euthymic with a full range Diagnoses Unspecified depressive disorder. Assessment and Plan Unspecified depressive disorder: Continue current plan and medications. Disposition Discharge tomorrow if continues to have no suicidal ideation. Time Spent 15 minutes. Friday Vital Signs Vital Signs Date Time Temp Pulse Resp B/P (MAP) Pulse Ox O2 Delivery O2 Flow Rate FiO2 11/09/19 06:21 98.7 66 12 115/71 (86) Room Air 11/07/19 06:31 97 Current Medications Current Medications Medications (Trade) Dose Ordered Sig/Kasia Route PRN Reason Start Time Stop Time Status Last Admin Dose Admin Acetaminophen (Tylenol Tab) 650 mg Q6HP PRN PO HEADACHE or DISCOMFORT 11/04/19 23:30 Al Hydrox/Mg Hydrox/Simethicone (Mylanta) 30 ml Q4HP PRN PO HEARTBURN/INDIGESTION 11/04/19 23:30 Aripiprazole (AbiLIFY) 2 mg QHS PO 11/05/19 21:00 11/07/19 18:16 DC 11/06/19 21:53 Aripiprazole (AbiLIFY) 5 mg QHS PO 11/07/19 21:00 11/08/19 20:17 Lorazepam (Ativan) 1 mg STAT STAT PO 11/04/19 22:25 11/04/19 22:26 DC 11/04/19 22:33 Lorazepam (Ativan) 2 mg STAT STAT PO 11/04/19 20:58 11/04/19 20:59 DC 11/04/19 21:12 Magnesium Hydroxide (Milk Of Magnesia) 30 ml DAILYPRN PRN PO CONSTIPATION 11/04/19 23:30 Olanzapine (ZyPREXA ZYDIS) 5 mg Q4HP PRN PO ANXIETY/AGITATION 11/05/19 18:30 11/08/19 12:31 Trazodone HCl (Desyrel) 50 mg QHSP PRN PO INSOMNIA 11/04/19 23:30 11/08/19 20:17 Allergies Coded Allergies: tramadol (Verified Adverse Reaction, Intermediate, seizure, 11/04/19) ZEKE OLIVA DO November 09, 2019 09:43
[2019-11-09] MEDS: OLANZapine ORAL DISINTEGRATING TAB 5MG PO PRN (12:09)
[2019-11-09 12:37] LABS: HEMOGLOBIN A1c 5.7 %
[2019-11-09 12:43] LABS: CHOLESTEROL RISK RATIO 6.468 (<5)
--- NOTE | 2019-11-09 14:15 | MHIPN ---
DATE: 11/07/2019 VITAL SIGNS: Blood pressure 129/60. Pulse 74. Temperature 97.6. This is a telemedicine video followup assessment. CHIEF COMPLAINT: Says could not sleep. SUBJECTIVE: He is seen for followup in the presence of staff. Says could not sleep much last night, is not quite sure why, but says felt a little restless, and agitated. Says has felt anxious as well, and inquired about medications available for anxiety. Had used olanzapine 5 mg yesterday in the afternoon. Feels depressed, says feels somewhat irritable as well, he is not sure if he has any suicidal thoughts at present, he anticipates he would if he were outside of the hospital, but is not sure if he would carry them out. Has not had any contact with anybody on the outside. MENTAL STATUS EXAMINATION: Neat. Guarded. No agitation. No psychomotor retardation. He is mildly irritable. Coherent. Vague on suicidal thoughts, no firm plans at present, while in hospital. No evidence of any psychosis. Does not appear to be internally preoccupied. Cognition grossly intact. Judgment and insight remain compromised. ASSESSMENT: Major depressive disorder, possibly recurrent, severe, without psychotic features. Methamphetamine use disorder. Remains depressed, with suicidal thoughts, though these may be less intense. PLAN: I would suggest increasing the Abilify to 5 mg at night, look at obtaining collateral information if possible. May need to look at introducing an antidepressant as well. Has olanzapine available as needed. Would encourage him to participate in the milieu. He will be seeing the assigned psychiatrist tomorrow when further recommendations will be made.
[2019-11-09 15:26] VITALS: BP 119/73
[2019-11-09] MEDS: traZODone 50 MG TAB PO PRN (20:14)
[2019-11-10 06:44] VITALS: BP 128/63
--- NOTE | 2019-11-10 09:12 | MHDSPDOC ---
[facility] Discharge Summary Discharge Summary DATE OF ADMISSION: Nov 04, 2019 at 23:18 DATE OF DISCHARGE: 11/10/19 Discharge Tani Ace MRN: N/A Date of : N/A Date of Service: 11/10/2019 Diagnoses Unspecified depressive disorder. Methamphetamine use disorder, unspecified. History of Present Illness The patient a 44-year-old man presents after having depression and suicidal thoughts in the context of substance use. Consultants Involved Hospitalist/PCP screening Treatment and Progress On The Unit The patient was admitted to the inpatient mental health unit. His suicidality resolved quite quickly and his depression as well. He was initially treated supportively, but then was started on Abilify 5 mg nightly of which the patient tolerated well and made good progress. He was increased to a total of 7 mg. However, the patient did not make much progress after that point and continued to be amenable without any significant problems. He was discharged on 5 mg. He had done well with no behavioral problems and suicidal ideation had been well resolved by the time he had requested discharge. He had a relatively uneventful admission. Discharge Assessment 44-year-old man with likely substance-related depression secondary to methamphet amine use presents in a depressive state, treat appropriately, he resolves with little intervention. The patient at the time of discharge did not meet criteria for involuntary admission/extension due to having a normal mental status exam, fair insight into the situation, They are engaged in the discharge process, as well as being friendly and amenable in behavioral control and havent been engaging in any observed concerning behavior or ideation recently. They decline voluntary extension/admission at this time and must be discharged in good [place], as Im unable to make a case for holding the patient against their will. They may have historical risk factors of admissions and other interactions with psychiatry however, those are not modifiable from a clinical perspective. The patient will need to be discharged in good [place]. Mental Status Examination General: Well dressed with good hygiene Speech: Spontaneous and fluid Thought processes: Linear and logical MSK: Smooth and coordinated gait, no signs of tremors or involuntary orofacial movements Thought content: Future orientated Abstract reasoning, and computation: Intact Description of associations: Intact Description of abnormal or psychotic thoughts: Denies any suicidal or homicidal ideation. Denies any auditory or visual hallucinations. Does not appear to be responding to internal stimuli. Does not appear to be endorsing any bizarre or paranoid ideation. Judgment: fair Insight: fair Orientation: Alert and orientated 3 Cognition: Grossly normal Recent and remote memory: Intact Attention span and concentration: Intact Fund of knowledge: Adequate Mood: "okay" Affect: Euthymic with a full range Follow Up The social work team worked during the predischarge meeting in order to evaluate for further issues of lethality address them fully before discharge. They worked on safety planning with the patient's family members in order to ensure that the patient will have a safe and effective discharge. Time Spent The amount of time spent in the coordination of care for this patient was approximately 45 minutes. Friday Vital Signs/I&Os Vital Signs Date Time Temp Pulse Resp B/P (MAP) Pulse Ox O2 Delivery O2 Flow Rate FiO2 11/10/19 06:44 97.4 64 12 128/63 (84) 11/09/19 06:21 Room Air 11/07/19 06:31 97 Laboratory Data Labs 24H Laboratory Tests 2 11/09/19 11:37: Estimated Mean Plasma Glucose 117H, Hemoglobin A1c 5.7, Triglycerides Level 319H, Total Cholesterol 207H, LDL Cholesterol 111H, Non-HDL Cholesterol (LDL + VLDL) 175, Total HDL Cholesterol 32L, Cholesterol/HDL Ratio 6.468H Medications Scheduled Aripiprazole (Abilify) 5 Mg Tablet, 5 MG PO QHS for mood for 7 Days, #7 Allergies Coded Allergies: tramadol (Verified Adverse Reaction, Intermediate, seizure, 11/04/19) ZEKE OLIVA DO November 10, 2019 09:12
[2019-11-10] MEDS ORDERED: ABIL1TAB11 PO (10:46)
== END 2019-11-10 11:15 | disposition home or self-care (01) | DRG 754 ==
LOC: M ED 20:27 → M ED INP 23:18 → M PSY 11-05 00:50
PROVIDERS: ADMIT Psychiatry & Neurology Psychiatry; ATTEND Psychiatry & Neurology Addiction Medicine
DX: F32.9 Major depressive disorder, single episode, unspecified (principal); R45.851 Suicidal ideations; N18.3 Chronic kidney disease, stage 3 (moderate); F15.90 Other stimulant use, unspecified, uncomplicated; I25.10 Atherosclerotic heart disease of native coronary artery without angina pectoris; Z95.2 Presence of prosthetic heart valve; F41.9 Anxiety disorder, unspecified

== ENCOUNTER 2019-11-16 20:22 | Emergency (ER) | payer MEDICAID ==
[~2019-11-16] VITALS: Ht 182.9 cm; Wt 90.9 kg
[~2019-11-16 20:22] MED LIST changes: +ABIL1TAB11 PO
[2019-11-16 20:35] LABS: BASO # 0.1 10^3/uL (0.0-0.2); BASO % 0.9 % (0.0-1.0); EOS # 0.3 10^3/uL (0.0-0.5); HEMATOCRIT 46.1 % (42.0-52.0); HEMOGLOBIN 15.5 g/dl (13.5-17.5); MEAN CORPUSCULAR HEMOGLOBIN 30.5 pg (27.0-33.0); MEAN CORPUSCULAR HGB CONC 33.6 g/dl (32.0-36.5); MEAN CORPUSCULAR VOLUME 90.7 fl (80.0-96.0); MONO # 0.9 10^3/uL (0.0-0.8); MONO % 9.1 % (0.0-5.0); NEUTROPHILS # 5.3 10^3/uL (1.5-8.5); NEUTROPHILS % 55.8 % (36.0-66.0); PLATELET COUNT, AUTOMATED 449 10^3/uL (150-450); RED BLOOD COUNT 5.08 10^6/uL (4.30-6.10); WHITE BLOOD COUNT 9.5 10^3/uL (4.0-10.0)
[2019-11-16] MEDS ORDERED: ASPI81CH33 PO (20:39)
[2019-11-16] MEDS ORDERED: ACETAMINOPHEN TAB 650MG DOSE (2X325MG) PO ONE (21:00)
[2019-11-16 21:08] LABS: BLOOD UREA NITROGEN 7 MG/DL (7-18); CALCIUM LEVEL 8.3 MG/DL (8.5-10.1); CARBON DIOXIDE LEVEL 28 MEQ/L (21-32); CHLORIDE LEVEL 110 MEQ/L (98-107); CK-MB VALUE MASS < 1.0 NG/ML (<3.6); CPK CREATINE PHOSPHOKINASE 104 U/L (39-308); CREATININE FOR GFR 1.14 MG/DL (0.70-1.30); GLOMERULAR FILTRATION RATE > 60.0 (>60); GLUCOSE, FASTING 90 MG/DL (70-100); MB/CK RELATIVE INDEX 0.96 (< OR =4); POTASSIUM SERUM 4.4 MEQ/L (3.5-5.1); SODIUM LEVEL 144 MEQ/L (136-145); TROPONIN I < 0.02 NG/ML (< 0.10)
[2019-11-16] MEDS ORDERED: ISOVUE-370 76% 100ML VIAL As Ordered ONE (21:28)
[2019-11-16 21:38] LABS: ALBUMIN 3.5 GM/DL (3.2-5.2); ALT/SGPT 51 U/L (12-78); BILIRUBIN,DIRECT < 0.1 MG/DL (0.0-0.2); BILIRUBIN,TOTAL 0.5 MG/DL (0.2-1.0); LIPASE 135 U/L (73-393); TOTAL PROTEIN 6.7 GM/DL (6.4-8.2)
[2019-11-17 03:15] LABS: CK-MB VALUE MASS < 1.0 NG/ML (<3.6); CPK CREATINE PHOSPHOKINASE 68 U/L (39-308); MB/CK RELATIVE INDEX 1.47 (< OR =4); TROPONIN I < 0.02 NG/ML (< 0.10)
[2019-11-17 03:31] VITALS: BP 136/63
--- NOTE | 2019-11-17 08:00 | REP ---
Portable chest x-ray: Single view. History: Chest pain. Comparison chest x-ray: January 08, 2017. Findings: Monitoring electrodes are seen. Lungs are well inflated and clear. Cardiomediastinal silhouette is unremarkable. Pulmonary vasculature is not increased. No significant bony abnormality is seen. 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 Impression: No active cardiopulmonary disease. Electronically Signed by Rolf Thomas MD 11/17/2019 07:51 A
--- NOTE | 2019-11-17 08:43 | ECGEPIP ---
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
--- NOTE | 2019-11-17 12:40 | REP ---
REASON: Chest pain. There are no priors for comparison. CONTRAST: 100 mL Isovue-370. There is excellent visualization of the pulmonary arterial vasculature. There are no focal filling defects present that would be considered consistent with pulmonary emboli. There is no mediastinal or hilar adenopathy. There are no pleural or pericardial effusions. The imaged upper abdomen and imaged osseous structures are within normal limits. Evaluation of the lung cisneros show no abnormal nodules, masses, or opacities. Mild bilateral dependent subsegmental atelectatic changes are noted. IMPRESSION: CT findings are within normal limits. Preliminary report was given by vR at the time the examination was performed. Electronically Signed by Anmol Gutierrez DO 11/17/2019 01:13 P
--- NOTE | 2019-11-18 22:01 | ECGEPIP ---
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
== END 2019-11-17 03:48 | disposition home or self-care (01) ==
LOC: EDBD 20:22 → M ED 20:22
DX: R07.9 Chest pain, unspecified (principal); I25.10 Atherosclerotic heart disease of native coronary artery without angina pectoris; N18.3 Chronic kidney disease, stage 3 (moderate); I25.2 Old myocardial infarction; F17.200 Nicotine dependence, unspecified, uncomplicated; F15.90 Other stimulant use, unspecified, uncomplicated; Z95.5 Presence of coronary angioplasty implant and graft; Z90.89 Acquired absence of other organs; Z79.82 Long term (current) use of aspirin; Z79.899 Other long term (current) drug therapy; Z88.6 Allergy status to analgesic agent
CPT/HCPCS: 36415; 71045; 71275; 80047; 80048; 80076; 82550; 82553; 83690; 85025; 93005; 93041; 94760; 99285; Q9967